=== PATIENT | male | born 1935 | race Caucasian/White ===

== ENCOUNTER 2020-10-06 08:35 | Emergency (ER) | payer MEDICARE, OTHER ==
[2020-10-06 09:17] LABS: PTT,PARTIAL THROMBOPLSTIN TIME 23.7 SEC (24.5-32.8)
--- NOTE | 2020-10-06 09:43 | EDM.PDOC ---
ED HPI GENERAL MEDICAL PROBLEM - General Chief Complaint: General Stated Complaint: bleeding from rectum Time Seen by Provider: 10/06/20 09:00 Source of Information: Reports: Patient History Limitations: Reports: No Limitations - History of Present Illness INITIAL COMMENTS - FREE TEXT/NARRATIVE: Sudden bleeding from rectum/large amount. No history of similar bleeding in past. No trauma. Has not had constipation and denies pushing with bowel movements. Painless. Started this morning while at [facility] right before presenting to ER. - Related Data Allergies Allergy/AdvReac Type Severity Reaction Status Date / Time COVID-19 vaccine, Allergy Other Verified 10/06/20 08:52 Ad26.COV2.S (Jans latex Allergy Rash Verified 10/06/20 09:31 methylprednisolone Allergy breathing Verified 10/06/20 09:31 difficulty Penicillins Allergy Cannot Verified 10/06/20 09:31 Remember Home Meds: Home Meds Cholecalciferol (Vitamin D3) [Vitamin D3] 5,000 unit PO DAILY 10/06/20 [History] Fish Oil/[place]-3 Fatty Acids [Fish Oil 1,000 MG] 1 gm PO DAILY 10/06/20 [History] Flaxseed Oil 1,000 mg PO DAILY 10/06/20 [History] Furosemide [Lasix] 20 mg PO DAILY 10/06/20 [History] Losartan Potassium 50 mg PO DAILY 10/06/20 [History] Metoprolol Succinate 25 mg PO DAILY 10/06/20 [History] Multivitamin with Minerals [Multiple Vitamin] 1 tab PO DAILY 10/06/20 [History] Non-Formulary Medication [NF Drug] 1 tab PO DAILY 10/06/20 [History] Rosuvastatin Calcium 20 mg PO DAILY 10/06/20 [History] hydroCHLOROthiazide [Hydrochlorothiazide] 25 mg PO DAILY 10/06/20 [History] Social & Family History - Tobacco Use Tobacco Use Status *Q: Never Tobacco User Second Hand Smoke Exposure: No - Caffeine Use Caffeine Use: Reports: Coffee - Recreational Drug Use Recreational Drug Use: No ED ROS GENERAL - Review of Systems Review Of Systems: See Below Constitutional: Reports: No Symptoms HEENT: Denies: Sinus Problem, Throat Pain, Throat Swelling, Vision Change Respiratory: Reports: No Symptoms Cardiovascular: Reports: No Symptoms GI/Abdominal: Reports: Bloody Stool. Denies: Abdominal Pain, Hematemesis, Nausea, Vomiting : Reports: No Symptoms Musculoskeletal: Reports: Other (no acute changes from baseline) Skin: Denies: Lesions Neurological: Reports: No Symptoms Psychiatric: Reports: No Symptoms ED EXAM, GENERAL - Physical Exam Exam: See Below Exam Limited By: No Limitations General Appearance: Alert, WD/WN, No Apparent Distress Eye Exam: Bilateral Eye: EOMI, PERRL Ears: Hearing Grossly Normal Throat/Mouth: Normal Lips, Normal Voice, No Airway Compromise Head: Atraumatic, Normocephalic Neck: Supple Respiratory/Chest: No Respiratory Distress, Lungs Clear, Normal Breath Sounds Cardiovascular: Regular Rate, Rhythm, No Murmur GI/Abdominal: Normal Bowel Sounds, Soft, Non-Tender, No Distention Rectal (Males) Exam: Heme + Stool, Hemorrhoids, Other ([place] bleeding from rectal area/some larger clots noted. Unable to identify exactly where bleed is originating from) Back Exam: No: CVA Tenderness (L), CVA Tenderness (R), Muscle Spasm Extremities: Normal Capillary Refill Neurological: Alert, Oriented, Normal Cognition, No Motor/Sensory Deficits Psychiatric: Normal Affect, Normal Mood Skin Exam: Warm, Dry, Normal Color Course - Vital Signs Last Recorded V/S: Last Vital Signs Temp 36.7 C 10/06/20 08:40 Pulse 77 10/06/20 08:40 Resp 18 10/06/20 08:40 BP 119/75 10/06/20 08:40 Pulse Ox 96 10/06/20 08:40 - Orders/Labs/Meds Labs: Laboratory Tests 10/06/20 10/06/20 10/06/20 Range/Units 08:50 08:50 08:50 WBC 9.5 (4.0-10.2) K/uL RBC 4.47 (4.33-5.41) M/uL Hgb 13.9 (13.1-16.8) g/dL Hct 40.7 (39.0-49.0) % MCV 91.1 (84.0-98.0) fL MCH 31.1 (28.2-33.3) pg MCHC 34.2 (31.7-36.0) g/dL RDW 13.7 (11.2-14.1) % Plt Count 165 (150-350) K/uL Neut % (Auto) 78.5 (45.0-80.0) % Lymph % (Auto) 10.0 (10.0-50.0) % [place] % (Auto) 7.6 (2.0-14.0) % Eos % (Auto) 3.4 (0.0-5.0) % Baso % (Auto) 0.5 (0.0-2.0) % Neut # (Auto) 7.44 H (1.40-7.00) K/uL Lymph # (Auto) 0.95 (0.50-3.50) K/uL [place] # (Auto) 0.72 (0.00-1.00) K/uL Eos # (Auto) 0.32 (0.00-0.50) K/uL Baso # (Auto) 0.05 (0.00-0.20) K/uL PT 10.4 (9.5-12.0) SEC INR 1.0 APTT 23.7 L (24.5-32.8) SEC Sodium 143 (136-145) mmol/L Potassium 3.2 L (3.5-5.1) mmol/L Chloride 103 (98-107) mmol/L Carbon Dioxide 31.6 (21.0-32.0) mmol/L BUN 32 H (7-18) mg/dL Creatinine 1.27 H (0.51-1.17) mg/dL Est Cr Clr Drug Dosing 39.04 mL/min Estimated GFR (MDRD) 54 mL/min Glucose 139 H (70-99) mg/dL Calcium 10.0 (8.5-10.1) mg/dL Magnesium 1.6 L (1.8-2.4) mg/dL Total Bilirubin 0.8 (0.2-1.0) mg/dL AST 19 (15-37) U/L ALT 37 (12-78) U/L Alkaline Phosphatase 40 L (46-116) IU/L Total Protein 6.5 (6.4-8.2) g/dL Albumin 3.6 (3.4-5.0) g/dL - Re-Assessments/Exams Free Text/Narrative Re-Assessment/Exam: 10/06/20 10:02 Heme + stool/obvious dark blood that is venous in appearance. May be due to internal hemorrhoid but unable to identify exact source. IV fluids initiated. Patient periodically would pass a clot. Call placed to [facility] and arrangements to transfer patient to [facility] made with . Unremarkable CBC. Renal insufficiency and low Mag and K noted on Chemistry. Departure - Departure Time of Disposition: 10:15 Disposition: DC/Tfer to Acute Hospital 02 Condition: Good Clinical Impression: Rectal bleeding, Hypokalemia, Hypomagnesemia - Discharge Information *PRESCRIPTION DRUG MONITORING PROGRAM REVIEWED*: Not Applicable *COPY OF PRESCRIPTION DRUG MONITORING REPORT IN PATIENT ALICJA: Not Applicable Referrals: Brandy Penn PA-C [Primary Care Provider] - Forms: ED Department Discharge Additional Instructions: Drive directly to ER at [facility] Sepsis Event Note (ED) - Evaluation Sepsis Screening Result: No Definite Risk - Focused Exam Vital Signs: Vital Signs Temp Pulse Resp BP Pulse Ox 10/06/20 08:40 36.7 C 77 18 119/75 96
[2020-10-06] MEDS ORDERED: Sodium Chloride 0.9% 10 ML Syringe FLUSH PRN (09:55)
[2020-10-06] MEDS: Potassium Chloride 20 MEQ Tab.ER PO ONE (10:08)
[2020-10-06] MEDS: Sodium Chloride 0.9% 1,000 ML IV ONE (10:09)
== END 2020-10-06 10:40 ==
LOC: LL.ED 08:35
DX: K62.5 Hemorrhage of anus and rectum (principal); E87.6 Hypokalemia; E83.42 Hypomagnesemia; Z88.7 Allergy status to serum and vaccine; Z91.040 Latex allergy status; Z88.8 Allergy status to other drugs, medicaments and biological substances; Z88.0 Allergy status to penicillin
CPT/HCPCS: 36415; 80053; 82272; 83735; 85025; 85610; 85730; 96365; 99284; 99284-25; A9270-GY; J3475; J7030

== ENCOUNTER 2021-03-10 10:32 | Emergency (ER) | payer MEDICARE, OTHER ==
[2021-03-10] MEDS: Ondansetron 4 MG/2 ML SDV IVPUSH ONE (10:57)
[2021-03-10] MEDS: Sodium Chloride 0.9% 10 ML Syringe FLUSH PRN (10:58)
[2021-03-10] MEDS: Morphine 4 MG/ML Syringe IVPUSH ONE (10:58)
--- NOTE | 2021-03-10 11:03 | EDM.PDOC ---
ED HPI GENERAL MEDICAL PROBLEM - General Chief Complaint: Lower Extremity Injury/Pain Stated Complaint: L Hip Pain Time Seen by Provider: 03/10/21 10:45 Source of Information: Reports: Patient, Family History Limitations: Reports: No Limitations - History of Present Illness INITIAL COMMENTS - FREE TEXT/NARRATIVE: Patient injured left hip after fall at home. Says he tripped when trying to pick something up off floor. No LOC. Denies hitting head. Only complaint is left hip pain. Landed directly on hip when he fell. Does not think he injured anything else. Did arrive on O2 2L. Wears O2 at night. EMS crew noted patient's sats were in high 80s when they arrived. - Related Data Allergies Allergy/AdvReac Type Severity Reaction Status Date / Time COVID-19 vaccine, Allergy Other Verified 03/10/21 10:34 Ad26.COV2.S (Jans latex Allergy Rash Verified 03/10/21 10:34 methylprednisolone Allergy breathing Verified 03/10/21 10:34 difficulty Penicillins Allergy Cannot Verified 03/10/21 10:34 Remember Home Meds: Home Meds Cholecalciferol (Vitamin D3) [Vitamin D3] 5,000 unit PO DAILY 10/06/20 [History] Fish Oil/[place]-3 Fatty Acids [Fish Oil 1,000 MG] 1 gm PO DAILY 10/06/20 [History] Flaxseed Oil 1,000 mg PO DAILY 10/06/20 [History] Furosemide [Lasix] 20 mg PO DAILY 10/06/20 [History] Losartan Potassium 50 mg PO DAILY 10/06/20 [History] Metoprolol Succinate 25 mg PO DAILY 10/06/20 [History] Multivitamin with Minerals [Multiple Vitamin] 1 tab PO DAILY 10/06/20 [History] Non-Formulary Medication [NF Drug] 1 tab PO DAILY 10/06/20 [History] Rosuvastatin Calcium 20 mg PO DAILY 10/06/20 [History] hydroCHLOROthiazide [Hydrochlorothiazide] 25 mg PO DAILY 10/06/20 [History] Past Medical History HEENT History: Reports: Hard of Hearing, Other (See Below) Other HEENT History: wears galsses. has bilateral hearing aides Cardiovascular History: Reports: CAD, High Cholesterol, Hypertension, Other (See Below) Other Cardiovascular History: aortic valve stenosis Respiratory History: Reports: Sleep Apnea Musculoskeletal History: Reports: Other (See Below) Other Musculoskeletal History: shuffled gait with ambulation Endocrine/Metabolic History: Reports: Vitamin D Deficiency - Past Surgical History Cardiovascular Surgical History: Reports: Coronary Artery Stent, Other (See Below) Other Cardiovascular Surgeries/Procedures: hx. of valve expansion surgery Social & Family History - Caffeine Use Caffeine Use: Reports: Coffee Review of Systems - Review of Systems Review Of Systems: See Below Eyes: Reports: Other (No acute changes) Ears: Reports: No Symptoms Nose: Reports: No Symptoms Mouth/Throat: Reports: No Symptoms Respiratory: Reports: No Symptoms. Denies: Shortness of Breath, Pleuritic Chest Pain Cardiovascular: Reports: No Symptoms. Denies: Chest Pain GI/Abdominal: Reports: No Symptoms Genitourinary: Reports: No Symptoms Musculoskeletal: Reports: Joint Pain (left hip). Denies: Neck Pain, Shoulder Pain, Arm Pain, Back Pain, Hand Pain, Foot Pain Skin: Reports: No Symptoms Neurological: Reports: Other (No acute changes) Psychiatric: Reports: No Symptoms ED EXAM, GENERAL - Physical Exam Exam: See Below Exam Limited By: Other (pain. Does not want to be moved around. Staid on back during initial eval.) General Appearance: Severe Distress (when moved. ) Eye Exam: Bilateral Eye: EOMI, PERRL Ears: Normal External Exam, Normal Canal Nose: No: Nasal Deformity, Nasal Swelling, Nasal Drainage Throat/Mouth: Normal Lips, Normal Voice, No Airway Compromise Head: Atraumatic, Normocephalic Neck: Supple, Non-Tender Respiratory/Chest: No Respiratory Distress, Lungs Clear, Normal Breath Sounds, No Accessory Muscle Use, Chest Non-Tender Cardiovascular: Normal Peripheral Pulses, Regular Rate, Rhythm, No Murmur GI/Abdominal: Non-Tender, Pelvis Stable (Male) Exam: Deferred Rectal (Males) Exam: Deferred Back Exam: No: Muscle Spasm Extremities: Normal Capillary Refill, Other (left leg shortened/rotated. Mild increased lower leg edema on left vs right which is normal per family member). No: Pallor Neurological: Alert, Oriented Psychiatric: Normal Affect, Normal Mood Skin Exam: Warm, Dry, Intact, Normal Color Course - Vital Signs Last Recorded V/S: Last Vital Signs Temp 36.3 C 03/10/21 10:39 Pulse 57 L 03/10/21 14:05 Resp 18 03/10/21 14:05 BP 105/60 03/10/21 14:05 Pulse Ox 98 03/10/21 14:05 - Orders/Labs/Meds Orders: Active Orders 24 hr Category Date Time Status Bar Catheter Insertion [Insert Urinary Catheter] [OM. Care 03/10/21 12:15 Ordered PC] Q24H Hip Min 2V or 3V w Pelvis Lt [CR] Stat Exams 03/10/21 11:03 Taken Peripheral IV Insertion Adult [OM.PC] Routine Oth 03/10/21 10:38 Ordered Labs: Laboratory Tests 03/10/21 03/10/21 Range/Units 11:00 11:00 WBC 7.8 (4.0-10.2) K/uL RBC 4.36 (4.33-5.41) M/uL Hgb 11.9 L D (13.1-16.8) g/dL Hct 37.4 L (39.0-49.0) % MCV 85.8 D (84.0-98.0) fL MCH 27.3 L (28.2-33.3) pg MCHC 31.8 (31.7-36.0) g/dL RDW 15.1 H (11.2-14.1) % Plt Count 156 (150-350) K/uL Neut % (Auto) 83.1 H (45.0-80.0) % Lymph % (Auto) 8.3 L (10.0-50.0) % [place] % (Auto) 5.8 (2.0-14.0) % Eos % (Auto) 2.3 (0.0-5.0) % Baso % (Auto) 0.5 (0.0-2.0) % Neut # (Auto) 6.49 (1.40-7.00) K/uL Lymph # (Auto) 0.65 (0.50-3.50) K/uL [place] # (Auto) 0.45 (0.00-1.00) K/uL Eos # (Auto) 0.18 (0.00-0.50) K/uL Baso # (Auto) 0.04 (0.00-0.20) K/uL Sodium 142 (136-145) mmol/L Potassium 3.9 (3.5-5.1) mmol/L Chloride 105 (98-107) mmol/L Carbon Dioxide 33.0 H (21.0-32.0) mmol/L Anion [place] 7.9 (7-15) meq/L BUN 15 (7-18) mg/dL Creatinine 1.22 H (0.51-1.17) mg/dL Est Cr Clr Drug Dosing 40.64 mL/min Estimated GFR (MDRD) 56 mL/min Glucose 147 H (70-99) mg/dL Calcium 9.2 (8.5-10.1) mg/dL Magnesium 1.9 (1.8-2.4) mg/dL Total Bilirubin 0.6 (0.2-1.0) mg/dL AST 21 (15-37) U/L ALT 36 (12-78) U/L Alkaline Phosphatase 51 (46-116) IU/L Total Protein 6.3 L (6.4-8.2) g/dL Albumin 3.4 (3.4-5.0) g/dL Meds: Medications Discontinued Medications Generic Name Dose Route Start Last Admin Trade Name Freq PRN Reason Stop Dose Admin Diazepam 5 mg 03/10/21 12:02 Diazepam 5 Mg Tab PO 03/10/21 12:03 ONETIME ONE Hydromorphone HCl 1 mg 03/10/21 11:13 03/10/21 11:18 Hydromorphone 1 Mg/Ml Syringe IVPUSH 03/10/21 11:14 1 mg ONETIME ONE Administration Morphine Sulfate 4 mg 03/10/21 10:39 03/10/21 10:58 Morphine 4 Mg/Ml Syringe IVPUSH 03/10/21 10:40 4 mg ONETIME ONE Administration Ondansetron HCl 4 mg 03/10/21 10:40 03/10/21 10:57 Ondansetron 4 Mg/2 Ml Sdv IVPUSH 03/10/21 10:41 4 mg ONETIME ONE Administration Sodium Chloride 10 ml 03/10/21 10:38 03/10/21 10:58 Sodium Chloride 0.9% 10 Ml Syringe FLUSH 10 ml ASDIRECTED PRN Administration Keep Vein Open - Re-Assessments/Exams Free Text/Narrative Re-Assessment/Exam: 03/10/21 12:00 Xray confirmed fracture femoral neck on left. Accepted for transfer to [facility] by /Ortho on-call MD. Waiting for room assignment prior to EMS transfer. Pain improved with MS followed by [facility]. CBC/Chem performed. Mild elevation Creatinine. Departure - Departure Time of Disposition: 14:00 Disposition: DC/Tfer to Acute Hospital 02 Condition: Good Clinical Impression: Fracture of neck of femur, hip - Discharge Information *PRESCRIPTION DRUG MONITORING PROGRAM REVIEWED*: Not Applicable *COPY OF PRESCRIPTION DRUG MONITORING REPORT IN PATIENT ALICJA: Not Applicable Referrals: Brandy Penn PA-C [Primary Care Provider] - Forms: ED Department Discharge Sepsis Event Note (ED) - Focused Exam Vital Signs: Vital Signs Temp Pulse Resp BP Pulse Ox 03/10/21 14:05 57 L 18 105/60 98 03/10/21 12:40 59 L 16 108/82 98 03/10/21 11:40 59 L 138/77 98 03/10/21 11:10 58 L 18 149/83 H 94 L 03/10/21 10:39 36.3 C 58 L 18 151/73 H 94 L - My Orders Last 24 Hours: My Active Orders 03/10/21 10:38 Peripheral IV Insertion Adult [OM.PC] Routine 03/10/21 11:03 Hip Min 2V or 3V w Pelvis Lt [CR] Stat 03/10/21 12:15 Bar Catheter Insertion [Insert Urinary Catheter] [OM.PC] Q24H - Assessment/Plan Last 24 Hours: My Active Orders 03/10/21 10:38 Peripheral IV Insertion Adult [OM.PC] Routine 03/10/21 11:03 Hip Min 2V or 3V w Pelvis Lt [CR] Stat 03/10/21 12:15 Bar Catheter Insertion [Insert Urinary Catheter] [OM.PC] Q24H
[2021-03-10 11:18] LABS: ANION GAP 7.9 meq/L (7-15)
[2021-03-10] MEDS: HYDROmorphone 1 MG/ML Syringe IVPUSH ONE (11:18)
[2021-03-10] MEDS ORDERED: Diazepam 5 MG Tab PO ONE (12:02)
== END 2021-03-10 14:20 ==
LOC: LL.ED 10:32
DX: S72.092A Other fracture of head and neck of left femur, initial encounter for closed fracture (principal); I25.10 Atherosclerotic heart disease of native coronary artery without angina pectoris; E78.00 Pure hypercholesterolemia, unspecified; I10 Essential (primary) hypertension; Z95.5 Presence of coronary angioplasty implant and graft; Z88.7 Allergy status to serum and vaccine; Z88.0 Allergy status to penicillin; Z88.8 Allergy status to other drugs, medicaments and biological substances; W18.39XA Other fall on same level, initial encounter; Y92.009 Unspecified place in unspecified non-institutional (private) residence as the place of occurrence of the external cause
CPT/HCPCS: 36415; 51702; 80053; 83735; 85025; 96374; 96375; 99283; 99285-25; J1170; J2270; J2405